=== PATIENT | female | born 1950 | race Caucasian/White ===

== ENCOUNTER 2016-06-19 23:21 | Emergency (ER) | payer MEDICARE ==
--- NOTE | ~2016-06-19 | EKG ---
PATIENT: IDALMIS GILLILAND UNIT #: [id number] Ventricular Rate: 81 BPM Atrial Rate: 81 BPM P-R Interval: 140 ms QRS Duration: 94 ms Q-T Interval: 366 ms QTC Calculation(Bezet): 425 ms P [place]: 7 degrees Calculated R [place]: 15 degrees Calculated T [place]: 42 degrees Diagnosis Line: Normal sinus rhythm Diagnosis Line: Incomplete right bundle branch block Diagnosis Line: Otherwise normal ECG Diagnosis Line: When compared with ECG of 08-NOV-2014 11:40, Diagnosis Line: No significant change was found Diagnosis Line: Confirmed by LYNNE FRAUSTO MD ([id number]) on 06/21/2016 Diagnosis Line: 9:40:37 AM INTERPRETING MD: JETT LUCAS
[~2016-06-19 23:21] MED LIST: AMBIEN PO; CALCIUM + D 6001 TA1 PO; CERTAGEN PO; CYMBALTA PO; DOMPERIDONE PO; DURAGESIC25 MCG EXT; FISH OIL 1,0001 EAC3 PO; FLAX SEED OIL1 EACH PO; GINGER ROOT550 M1 PO; KLONOPIN PO; KLONOPIN1 MG PO; LORTAB 7.5-5001 TAB PO; MAGNESIUM; MOBIC; MOBIC PO; MONUROL PO; OMEPRAZOLE MAGN20 MG PO; PEPCID AC20 M2 PO; PERCOCET; PERCOCET10 PO; PRAVASTATIN SOD20 MG; PROTONIX PO; PYRIDIUM100 MG PO; VICODIN PO; VIT E PO; VITAMIN D1000 UNIT PO; VIVELLE; [UNRECOGNIZED DRUG - OTHER]
[2016-06-20 00:03] LABS: BASOPHIL% 0.3 % (0-2.5); EOSINOPHIL# 0.1 X10e3 (0-0.7); EOSINOPHIL% 0.5 % (0.0-7.0); HEMATOCRIT 44.5 % (35.0-45.0); HEMOGLOBIN 14.9 gm/dL (12.0-16.0); LYMPHOCYTE# 2.6 X10e3 (1.0-3.5); LYMPHOCYTE% 27.2 % (17.0-45.0); MEAN CORPUSCULAR HEMOGLOBIN 29.7 PG (28-34); MEAN CORPUSCULAR HGB CONC 33.4 g/dL (30-36); MEAN PLATELET VOLUME 6.6 FL (6.5-11.5); MONOCYTE# 0.9 X10e3 (0-1.0); NEUTROPHIL# 6.1 X10e3 (1.5-7.1); PLATELET COUNT 311 X10e3 (140-420); RED CELL DISTRIBUTION WIDTH 12.4 % (11.0-15.5); URINE SOURCE CLEAN CATCH; WHITE BLOOD COUNT 9.7 X10e3 (4.0-10.5)
[2016-06-20 00:04] LABS: DIFF IND NO
[2016-06-20 00:05] LABS: URINE APPEARANCE CLEAR; URINE BILIRUBIN NEG (NEG); URINE BLOOD NEG (NEG); URINE COLOR YELLOW; URINE GLUCOSE NEG (NORM); URINE KETONE NEG (NEG); URINE LEUKOCYTE ESTERASE TRACE (NEG); URINE NITRATE NEG (NEG); URINE PROTEIN NEG (NEG); URINE UROBILINOGEN 0.2 MG/DL (NORM)
[2016-06-20 00:07] LABS: CULTURE INDICATED? NO; MICRO INDICATED? YES; URINE BACTERIA NEG (NEG)
[2016-06-20 00:08] LABS: URINE MUCUS PRESENT; URINE SQUAMOUS EPITHELIAL CELL OCCAS /[HPF]
[2016-06-20 00:16] LABS: ALBUMIN SERUM 4.2 g/dL (3.5-5.0); BILIRUBIN, DIRECT 0.2 mg/dL (0.0-0.2); BILIRUBIN,INDIRECT 0.4 mg/dL (0.0-0.9); BILIRUBIN,TOTAL 0.6 mg/dL (0.2-2.0); BUN/CREATININE RATIO 23.75; CALCIUM SERUM 9.2 mg/dL (8.4-10.2); CREATININE SERUM 0.8 mg/dL (0.6-1.4); POTASSIUM 3.9 mmol/L (3.5-5.1); PROTEIN TOTAL SERUM 7.5 g/dL (6.0-8.3)
[2016-06-20 01:03] LABS: POC - CKMB <1.0 ng/mL (0.0-7.9); POC - TROPONIN <0.05 ng/mL (<=0.05)
== END 2016-06-20 01:17 | disposition home or self-care (01) ==
LOC: SED 23:21
PROVIDERS: Emergency Medicine
DX: E86.0 Dehydration (principal); F32.9 Major depressive disorder, single episode, unspecified; E78.5 Hyperlipidemia, unspecified; Z90.49 Acquired absence of other specified parts of digestive tract; Z90.710 Acquired absence of both cervix and uterus; Z88.0 Allergy status to penicillin; Z88.5 Allergy status to narcotic agent; Z88.8 Allergy status to other drugs, medicaments and biological substances; Z88.2 Allergy status to sulfonamides; Z88.1 Allergy status to other antibiotic agents
CPT/HCPCS: 36415; 80048; 80076; 81003; 82553; 84443; 84484; 85025; 93005; 96360; 99284